=== PATIENT | female | born 1955 | race Caucasian/White ===

== ENCOUNTER 2018-07-24 08:49 | Emergency (ER) | payer MEDICARE, OTHER ==
[~2018-07-24] VITALS: Ht 167.6 cm; Wt 100.0 kg
[2018-07-24 09:00] VITALS: Ht 167.6 cm; Wt 100.0 kg
[2018-07-24] MEDS ORDERED: KETOROLAC 30 MG INJ IM STA (09:32)
[2018-07-24] MEDS ORDERED: ACET500C5 PO (09:38)
--- NOTE | 2018-07-24 09:43 | ERD ---
ER Documentation Chief Complaint Chief Complaint Complains of left knee pain x 3 days HPI Patient is a 63-year-old female with a history of hypertension, DM type II, hypertension, hyper thyroidism, osteoarthritis, who presents the ER with concerns of bilateral knee pain. Patient states her left knee pain is worse. Patient states she has a history of chronic knee pain however over the last day, her left knee pain became worse. Patient states she took one ibuprofen with minimal alleviation of pain yesterday. Patient denies any falls or trauma. Patient denies any fevers or chills. Patient denies any lower back pain. ROS All systems reviewed and are negative except as per history of present illness. Medications Home Meds Active Scripts Acetaminophen* (Tylophen*) 500 Mg Capsule, 2 CAP PO Q6H PRN for PAIN AND OR ELEVATED TEMP, #20 CAP Prov:JULIA BARTLETT PA-C 07/24/18 Allergies Allergies: Coded Allergies: No Known Allergy (Unverified , 07/24/18) PMhx/Soc Medical and Surgical Hx: pt denies Medical Hx Hx Respiratory Disorders: Yes (asthma, high cholesterol, htn) Hx Miscellaneous Medical Probl: Yes (dm, hyperthryroid, arthritis) Hx Alcohol Use: No Hx Substance Use: No Hx Tobacco Use: No FmHx Family History: No diabetes Physical Exam Vitals Vital Signs Date Temp Pulse Resp B/P (MAP) Pulse Ox O2 O2 Flow FiO2 Time Delivery Rate 07/24/18 99.1 80 20 149/87 95 09:00 (107) Physical Exam GENERAL: Well-developed, well-nourished female. Appears in no acute distress. HEAD: Normocephalic, atraumatic. EYES: Pupils are equally reactive bilaterally. EOMs grossly intact. No conjunctival erythema. NECK: Supple. No meningismus. Normal range of motion of the neck. LUNG: Clear to auscultation bilaterally. No rhonchi, wheezing, rales or coarse breath sounds. HEART: Regular rate and rhythm. No murmurs, rubs or gallops. EXTREMITIES: Equal pulses bilaterally. No peripheral clubbing, cyanosis or edema. No unilateral leg swelling. NEUROLOGIC: Alert and oriented. Moving all four extremities without any difficulty. Normal speech. Steady gait. SKIN: Normal color. Warm and dry. No rashes or lesions. LLE: No deformity, erythema, ecchymosis or swelling. Skin intact. Decreased range of motion secondary pain. Tender to palpation on the medial and lateral aspect of the knee. No valgus/varus instability. Sensation intact to light touch. Neurovascularly intact. (Able to plantarflex, dorsiflex, magalis foot, invert foot, raise big toe.) 2+ DP and DT pulses. Results 24 hrs Current Medications Medications Dose Sig/Arlen Start Time Status Last (Trade) Ordered Route PRN Stop Time Admin Dose Reason Admin Ketorolac 30 mg ONCE STAT 07/24/18 DC Tromethamine IM 09:32 (Toradol) 07/24/18 09:33 Procedures/MDM MEDICAL DECISION MAKING: This is a 63-year-old female with a history of osteoarthritis, presents the ER for concerns of bilateral knee pain, left knee pain is worse times 1 day. Patient has a history of chronic knee pain. Patient denies falls or trauma.. Vital signs were reviewed. Patient was afebrile. Given that patient denied falls or trauma, I do not feel that emergent x-ray imaging is indicated at this time. Patient was given Toradol for pain. Patient advised to follow-up with an software quality specialist for further management of her chronic knee pain. Low suspicion for fracture, dislocation, septic joint, gout, popliteal cyst, bursitis, DVT, she mellitus or compartment syndrome. Unable to rule out any ligament or tendon injuries at this time. PRESCRIPTIONS: Tylenol DISCHARGE: At this time, patient is stable for discharge and outpatient management. RICE therapy and ROM exercises were advised to avoid stiffness. I have instructed the patient to follow-up with his/her primary care physician in 1-2 days. I have discussed with the patient the possibility of needing to see an software quality specialist for further workup and imaging if the pain persists. I have instructed the patient to promptly return to the ER for any new or worsening symptoms including increased pain, swelling, redness, warmth or fever. The patient and/or family expressed understanding of and agreement with this plan. All questions were answered. Home care instructions were provided. Patients blood pressure was elevated (>120/80) but appears stable without evidence of hypertensive emergency, hypertensive urgency or end-organ failure. I had discussion with the patient about the risks of hypertension. I have advised the patient to follow up with his/her primary care physician for outpatient monitoring and treatment for hypertension in 2-3 days. I have instructed the patient to return to the ER for any new or worsening symptoms including chest pain, shortness of breath, headache, blurred vision, confusion, nausea, vomiting or LOC. Disclaimer: Inadvertent spelling and grammatical errors are likely due to EHR/dictation software use and do not reflect on the overall quality of patient care. Also, please note that the electronic time recorded on this note does not necessarily reflect the actual time of the patient encounter. Departure Diagnosis: Primary Impression: Knee pain Chronicity: chronic Laterality: bilateral Qualified Codes: M25.561 - Pain in right knee; M25.562 - Pain in left knee; G89.29 - Other chronic pain Condition: Stable Patient Instructions: What Is Osteoarthritis? Referrals: [facility] YOU HAVE RECEIVED A MEDICAL SCREENING EXAM AND THE RESULTS INDICATE THAT YOU DO NOT HAVE A CONDITION THAT REQUIRES URGENT TREATMENT IN THE EMERGENCY DEPARTMENT. FURTHER EVALUATION AND TREATMENT OF YOUR CONDITION CAN WAIT UNTIL YOU ARE SEEN IN YOUR DOCTORS OFFICE WITHIN THE NEXT 1-2 DAYS. IT IS YOUR RESPONSIBILITY TO MAKE AN APPOINTMENT FOR FOLOW-UP CARE. IF YOU HAVE A PRIMARY DOCTOR --you should call your primary doctor and schedule an appointment IF YOU DO NOT HAVE A PRIMARY DOCTOR YOU CAN CALL OUR PHYSICIAN REFERRAL HOTLINE AT IF YOU CAN NOT AFFORD TO SEE A PHYSICIAN YOU CAN CHOSE FROM THE FOLLOWING [facility] [address] [facility] [address] [facility]. [facility] [address] [facility] [facility] [address] [facility]. [facility] [address] [facility]. [facility]. [address] [facility]. [facility] YOU HAVE RECEIVED A MEDICAL SCREENING EXAM AND THE RESULTS INDICATE THAT YOU DO NOT HAVE A CONDITION THAT REQUIRES URGENT TREATMENT IN THE EMERGENCY DEPARTMENT. FURTHER EVALUATION AND TREATMENT OF YOUR CONDITION CAN WAIT UNTIL YOU ARE SEEN IN YOUR DOCTORS OFFICE WITHIN THE NEXT 1-2 DAYS. IT IS YOUR RESPONSIBILITY TO MAKE AN APPOINTMENT FOR FOLOW-UP CARE. IF YOU HAVE A PRIMARY DOCTOR --you should call your primary doctor and schedule and appointment IF YOU DO NOT HAVE A PRIMARY DOCTOR YOU CAN CALL OUR PHYSICIAN REFERRAL HOTLINE AT . IF YOU CAN NOT AFFORD TO SEE A PHYSICIAN YOU CAN CHOSE FROM THE FOLLOWING [facility] INSTITUTIONS: [facility] [address] [place] [address] [facility] [address] [place] [address] [facility] + [facility] [address] [place] [address] Additional Instructions: Call your primary care doctor TOMORROW for an appointment during the next 1-2 days.See the doctor sooner or return here if your condition worsens before your appointment time. JULIA BARTLETT PA-C Jul 24, 2018 09:43
== END 2018-07-24 10:29 | disposition home or self-care (01) ==
LOC: FTE 08:49
DX: M25.562 Pain in left knee (principal); M25.561 Pain in right knee; E11.9 Type 2 diabetes mellitus without complications; I10 Essential (primary) hypertension; J45.909 Unspecified asthma, uncomplicated
CPT/HCPCS: 96372; 99284; J1885